=== PATIENT | male | born 1965 | race Caucasian/White ===

== ENCOUNTER 2017-03-30 16:55 | Observation (INO) | payer OTHER ==
[2017-03-30] MEDS ORDERED: Ondansetron HCl/PF 4 MG/2 ML Vial IVP PRN (18:36)
[2017-03-30] MEDS ORDERED: Acetaminophen 650 MG Suppository PR PRN (18:36)
[2017-03-30 18:53] LABS: ALT (SGPT) 39 U/L (8-55); AST (SGOT) 81 U/L (5-34); Albumin 4.7 g/dL (3.5-5.0); Alkaline Phosphatase 54 U/L (40-150); Anion Gap 16 mmol/L (10-20); BUN (Urea Nitrogen) 20 mg/dL (8.9-20.6); Bilirubin, Total 1.5 mg/dL (0.2-1.2); Calc. Creatinine Clearance 0 mL/min (70-130); Calcium 9.6 mg/dL (7.8-10.44); Carbon Dioxide 24 mmol/L (22-29); Chloride 101 mmol/L (98-107); Estimated GFR-MDRD Greater than 90; Globulin 3.6 g/dL (2.4-3.5); Glucose 126 mg/dL (70-105); Hemoglobin 17.4 g/dL (14.0-18.0); Mean Corpuscular Hemoglobin 33.5 pg (27.0-31.0); Mean Corpuscular Volume 93.2 fl (80.0-94.0); Mean Platelet Volume 6.3 fL (7.4-10.4); Platelet Count 262 thou/uL (130-400); Potassium 3.3 mmol/L (3.5-5.1); Protein, Total 8.3 g/dL (6.0-8.3); RBC Distribution Width 11.6 % (11.5-14.5); Sodium 138 mmol/L (136-145); White Blood Cell (WBC) Count 21.9 thou/uL (4.8-10.8)
[2017-03-30] MEDS ORDERED: Sodium Chloride 0.9% 1,000 ML IV SCH (19:00)
[2017-03-30 19:23] LABS: Lymphocytes 11 % (21-51); MDiff Complete? YES; Monocytes 7 % (0-10); Neutrophil 82 % (42-75); PLT Morphology Comment Appears Adequate; RBC Morphology Normal
[2017-03-30] MEDS ORDERED: Prochlorperazine Edisylate 10 MG in Sodium Chloride 0.9% 50 ML IVPB PRN (19:23)
[2017-03-30] MEDS ORDERED: Lorazepam 2 MG/ML VIAL ONE (19:45)
[2017-03-30] MEDS ORDERED: Prochlorperazine 10 MG/2 ML VIAL ONE (19:58)
[2017-03-30] MEDS ORDERED: Pantoprazole 40 MG VIAL IVP SCH (20:00)
[2017-03-30] MEDS: Sodium Chloride 0.9% 1,000 ML IV SCH (20:06)
[2017-03-30] MEDS: Lorazepam 2 MG/ML VIAL SLOW IVP PRN (20:07)
[2017-03-30] MEDS ORDERED: chlorproMAZINE HCl 25 MG TAB PO SCH ×2 (21:00)
[2017-03-30] MEDS: chlorproMAZINE HCl 25 MG TAB PO SCH ×2 (21:06→21:22)
[2017-03-30 21:19] VITALS: BMI 25.7
[2017-03-31] MEDS: Sodium Chloride 0.9% 1,000 ML IV SCH ×3 (01:17→11:06)
[2017-03-31] MEDS ORDERED: Acetaminophen 650 MG Suppository ONE (01:26)
[2017-03-31] MEDS ORDERED: Lorazepam 2 MG/ML VIAL ONE (02:03)
[2017-03-31] MEDS: Lorazepam 2 MG/ML VIAL SLOW IVP PRN ×2 (02:07→10:36)
--- NOTE | 2017-03-31 02:20 | HP ---
REASON FOR ADMISSION/CHIEF COMPLAINT: Intractable nausea and vomiting. HISTORY OF PRESENT ILLNESS: The patient is a 51-year-old white male with a previous history of recu rrent episodes of intractable nausea and vomiting who was in his usual state of health until 2 days prior to observation and admission after finding out his grandfather had and previously the week prior attended the of his [id number], the patient began having episodes of intra ctable nausea with vomiting, headache, and overall malaise. The patient has had multiple episodes o f similar bouts in the past. At that time, he would always require medications, cocktails, includin g antiemetics, anxiolytics and sometimes medication for pain. In the past, these episodes would las t several days. The patient tried to manage his symptoms at home, but on the day of admission, he b laly to become weaker feeling and just overall unable to take anything p.o. and thus was made a dire ct admit to observation for the hospital. PAST MEDICAL HISTORY: 1. Hypothyroidism. 2. Hypogonadism. 3. History of depression. 4. History of allergic rhinitis. 5. History of recurrent bouts of emesis with nausea as noted above. PAST SURGICAL HISTORY: Status post gallbladder removal and knee surgery. CURRENT MEDICATIONS: Zoloft, dose unknown; levothyroxine 175 mcg daily; Thorazine 25 mg q.8 hours p .r.n. nausea and vomiting; Xanax 0.5 mg q.8 hours p.r.n. anxiety. ALLERGIES: No known drug allergies. FAMILY HISTORY: Mother of thyroid and heart problems. The patient had a sibling from an [place]. SOCIAL HISTORY: The patient denies alcohol of significant use or smoking. College graduate, n[employer] d with 2 sons, both healthy. He does have one of his sons with similar symptoms with intractable ep isodes of nausea and vomiting. The patient works as a financial management analyst. REVIEW OF SYSTEMS: Prior to his onset of symptoms two days ago, patient had no significant complain ts. No recent nausea and vomiting prior to 48 hours ago. No URI-like symptoms. No chest pain or s hortness of breath. No visual deficits. The patient denies any significant weight loss or weight g ain. No dysuria, hematuria or change in urinary frequency. No significant aches or pains. The pat ient denies any significant edema. The patient denies any history of recent exacerbation of his dep ression other than the recent acknowledgement of the loss of 2 significant family members. PHYSICAL EXAMINATION: GENERAL: White male, alert and oriented x3, in obvious distress due to nausea. The patient was hav ing dry heaves during his evaluation. VITAL SIGNS: Blood pressure 182/68, respiratory rate 20, pulse was 68. The patient is afebrile. HEENT: Eyes were sunken, but extraocular movements are intact. Oropharynx, mucous membranes are dr y. NECK: Supple. No masses palpated, no bruits auscultated. CHEST: Clear to auscultation bilaterally without rales or wheezes. HEART: Regular rate and rhythm without murmurs, rubs or gallops. ABDOMEN: Flat, soft. Bowel sounds hypoactive in all 4 quadrants. The patient has diffuse tenderne ss to deep palpation throughout his abdomen, but no rebound or guarding. Abdomen was again soft. EXTREMITIES: No cyanosis, clubbing or edema. BACK: No CVA or vertebral tenderness noted. LABORATORY FINDINGS: The patient had a CBC with elevated white count of 21,900 which is similar to prior episodes when the patient had his bouts of intractable nausea and vomiting. Chemistry panel i s significant for sodium 138, potassium was 3.3, glucose 126. AST slightly elevated at 81. ASSESSMENT AND PLAN: Intractable nausea and vomiting. This episode is very similar to prior spells , usually time is the only factor that significantly improves them. We will definitely treat his de hydration with IV fluids and normal saline, may consider adding potassium if he is unable to take do wn any p.o. We will have to give potassium IV since he is having significant nausea. We will start him on Ativan 2 mg IV q.6 hours p.r.n. restlessness, which he currently has at this time. We will start Zofran 4 mg IV q.6 hours p.r.n. nausea and vomiting, Protonix 40 mg IV q.24 hours. We will co nsider Thorazine if he is able to take p.o. The other option would be Compazine IV. We will follow to see if this will be needed. Hopefully the patient's symptoms will improve and he will be able t o be discharged back home in the morning.
[2017-03-31] MEDS: chlorproMAZINE HCl 25 MG TAB PO SCH ×2 (08:32→15:48)
[2017-03-31 09:15] LABS: #Basophils 0.2 thou/uL (0.0-0.2); #Eosinphils 0.1 thou/uL (0.0-0.7); #Lymphocytes 3.2 thou/uL (1.20-3.40); #Monocytes 1.3 thou/uL (0.11-0.59); %Basophils 1.2 % (0.0-1.0); %Eosinophils 0.9 % (0.0-10.0); %Lymphocytes 20.2 % (21.0-51.0); %Monocytes 8.2 % (0.0-10.0); %Neutrophils 69.6 % (42.0-75.0); Hemoglobin 15.7 g/dL (14.0-18.0); Mean Corpuscular HGB CONC 35.5 g/dL (32.0-36.0); Mean Corpuscular Hemoglobin 32.7 pg (27.0-31.0); Mean Corpuscular Volume 92.1 fl (80.0-94.0); Mean Platelet Volume 6.9 fL (7.4-10.4); Platelet Count 244 thou/uL (130-400); RBC Distribution Width 11.5 % (11.5-14.5); Red Blood Cell (RBC) Count 4.81 mill/uL (4.70-6.10); White Blood Cell (WBC) Count 15.8 thou/uL (4.8-10.8)
[2017-03-31 09:27] LABS: ALT (SGPT) 41 U/L (8-55); AST (SGOT) 77 U/L (5-34); Albumin 4.1 g/dL (3.5-5.0); Alkaline Phosphatase 50 U/L (40-150); Anion Gap 15 mmol/L (10-20); BUN (Urea Nitrogen) 12 mg/dL (8.9-20.6); Bilirubin, Total 1.7 mg/dL (0.2-1.2); Calc. Creatinine Clearance 151 mL/min (70-130); Calcium 8.4 mg/dL (7.8-10.44); Carbon Dioxide 23 mmol/L (22-29); Chloride 103 mmol/L (98-107); Estimated GFR-MDRD Greater than 90; Globulin 3.1 g/dL (2.4-3.5); Glucose 114 mg/dL (70-105); Potassium 3.2 mmol/L (3.5-5.1); Protein, Total 7.2 g/dL (6.0-8.3); Sodium 138 mmol/L (136-145)
[2017-03-31 13:27] VITALS: BP 122/70; TEMP 98.2
== END 2017-03-31 16:11 | disposition home or self-care (01) ==
LOC: BURMED 17:37
PROVIDERS: ADMIT Family Medicine; ATTEND Family Medicine
DX: R11.2 Nausea with vomiting, unspecified (principal); R51 Headache; E03.9 Hypothyroidism, unspecified; E29.1 Testicular hypofunction; F32.9 Major depressive disorder, single episode, unspecified; J30.9 Allergic rhinitis, unspecified; Z98.890 Other specified postprocedural states; Z90.49 Acquired absence of other specified parts of digestive tract; Z83.49 Family history of other endocrine, nutritional and metabolic diseases; Z82.49 Family history of ischemic heart disease and other diseases of the circulatory system; Z79.82 Long term (current) use of aspirin; Z79.899 Other long term (current) drug therapy
CPT/HCPCS: 36415; 80053; 85025; 96361; 96365; 96375; 96376; A4216; C9113; G0378; J0780; J2060

== ENCOUNTER 2020-03-28 09:20 | Outpatient (CLI) | payer BC ==
--- NOTE | 2020-03-29 07:08 | RAD ---
XR Foot Rt 3 View STANDARD History: Pain Comparison: None. Findings: No acute fracture or malalignment. Lisfranc interval is maintained. Mild narrowing of the great toe interphalangeal joint space with small osteophyte formation. Impression: No acute fracture or malalignment.
== END 2020-03-28 09:21 | disposition home or self-care (01) ==
LOC: BURLAB 09:20
PROVIDERS: ATTEND Family Medicine
DX: M79.671 Pain in right foot (principal)